=== PATIENT | female | born 1970 | race African-American/Black ===

== ENCOUNTER 2017-03-15 14:52 | Emergency (ER) | payer OTHER ==
--- NOTE | ~2017-03-15 | CR58 ---
[facility] A Service of [facility] RADIOLOGY TEXT RESULTS PATIENT: VALENTINA STEWART LOCATION: [facility] : 72 UNIT #: [id number] AGE: [address]: Manuel Monaco MD SEX: F ORDER DR: [id number] [facility]. [place], [place] [address] [id number] MR#: [id number] Acc #: [id number] NAME: VALENTINA STEWART : 1970 SEX: F STUDY DATE/TIME: 03/15/2017 19:25 UNIT: [facility] ROOM: STUDY DESCRIPTION: CR Cervical Spine 2 or 3 Views Attending Physician: Manuel Monaco M.D. Ordering Physician: Manuel Monaco M.D. MEDICAL IMAGING REPORT This report is preliminary unless electronic signature is present EXAM 4 views cervical spine 03/15/2017 HISTORY Left side neck pain with swelling. This radiates to left arm. Symptoms began yesterday. No known trauma. COMPARISON None. FINDINGS AP, lateral, odontoid, and swimmer's views were obtained. FINDINGS The craniocervical junction is intact. No acute vertebral body fracture or subluxation. Mild diminished disc height at C4-C5. Small anterior osteophytes are present at C1 to C5. The lung apices appear clear. IMPRESSION Mild degenerative loss of disc height at C4-C5. No acute cervical spine findings. Dictated by... Jo Guido M.D. THIS IS AN ELECTRONICALLY VERIFIED REPORT Jo Guido M.D. at 03/18/2017 8:38 AM LLH/dafne TD: 03/16/2017 15:22 JOB #: [id number] [facility] A Service [facility] RADIOLOGY TEXT RESULTS PATIENT: VALENTINA STEWART LOCATION: [facility] : 72 UNIT #: [id number] AGE: [address]: Manuel Monaco MD SEX: F ORDER DR: MEDICAL IMAGING REPORT Page 1 of 1 COPY
--- NOTE | ~2017-03-15 | EKG ---
PATIENT: VALENTINA STEWART UNIT #: [id number] Ventricular Rate: 97 BPM Atrial Rate: 97 BPM P-R Interval: 148 ms QRS Duration: 88 ms Q-T Interval: 358 ms QTC Calculation(Bezet): 454 ms P [place]: 54 degrees Calculated R [place]: 16 degrees Calculated T [place]: 15 degrees Diagnosis Line: Normal sinus rhythm Diagnosis Line: Normal ECG Diagnosis Line: No previous ECGs available Diagnosis Line: Confirmed by DUC CADENA MD ([id number]) on 03/17/2017 Diagnosis Line: 2:53:32 PM INTERPRETING MD: SURINDER CAT
[~2017-03-15 14:52] MED LIST: AMPICILLIN PO; ERYTHROMYCIN O3.5 GM OP; PRED FORTE1 ML OP
== END 2017-03-15 21:15 | disposition home or self-care (01) ==
LOC: CED 14:52
DX: M54.10 Radiculopathy, site unspecified (principal)
CPT/HCPCS: 72040; 93005; 96372; 99283; J1885